=== PATIENT | female | born 1990 | race Caucasian/White ===

== ENCOUNTER 2016-10-30 15:44 | Emergency (ER) | payer OTHER ==
[~2016-10-30] VITALS: Ht 160 cm; Wt 102.5 kg
[~2016-10-30 15:44] MED LIST: AMOXICILLIN AND1 TA2 PO; ATIVAN1 MG PO; BACTRIM DS1 TAB PO; BENADRYL ALLERG25 M1 PO; CELEXA40 MG PO; CLINDAMYCIN HC300 MG PO; CLONIDINE HCL0.2 MG PO; GABAPENTIN300 M2 PO; IMITREX100 MG PO; KLO1 PO; LAC PO; LEVAQUIN750 MG PO; LIBRIUM10 MG PO; LOP600 PO; MEDROL DOSEPAK4 MG PO; MIRTAZAPINE15 M2 PO; MOTRIN800 MG PO; MYCLUD PO; NOR10T PO; REM15 PO; TRAMADOL HCL50 MG PO; VAL10 PO; VALIUM5 MG PO; XAN1 PO; ZOCOR10 MG PO; ZOFRAN ODT4 MG SL; ZOLOFT100 MG PO
[2016-10-30 17:37] LABS: BASOPHIL % 0.3 % (0-2); PLATELET COUNT 324 x10^3mcL (130-400); RED CELL DISTRIBUTION WIDTH 14.4 % (11.5-14.5)
[2016-10-30 17:49] LABS: CALCIUM 9.4 mg/dL (8.5-10.1); CARBON DIOXIDE 24.6 mmol/L (21-32); CHLORIDE SERUM 103 mmol/L (98-107); CREATININE SERUM 0.7 mg/dL (0.6-1.0); GFR1 > 60 mL/min; GLUCOSE SERUM 94 mg/dL (74-106); POTASSIUM SERUM 3.4 mmol/L (3.5-5.1); SODIUM SERUM 139 mmol/L (136-145)
[2016-10-30 17:53] LABS: ALKALINE PHOSPHATASE 75 U/L (46-116); ALT/SGPT 23 U/L (14-59); AST/SGOT 20 U/L (15-37); BILIRUBIN TOTAL 0.31 mg/dL (0.20-1.00); LIPASE 634 IU/L (73-393); TOTAL PROTEIN, SERUM 8.3 g/dL (6.4-8.2)
[2016-10-30 18:36] LABS: AMPHETAMINE QUAL UR NONE DETECTED (NEG <=1000)
[2016-10-30 19:07] VITALS: BP 108/78
== END 2016-10-30 19:07 | disposition home or self-care (01) ==
LOC: ED 15:44
PROVIDERS: Emergency Medicine
DX: R03.0 Elevated blood-pressure reading, without diagnosis of hypertension (principal); R55 Syncope and collapse; R74.8 Abnormal levels of other serum enzymes; R11.10 Vomiting, unspecified; F41.9 Anxiety disorder, unspecified; F32.1 Major depressive disorder, single episode, moderate; G43.909 Migraine, unspecified, not intractable, without status migrainosus; Z79.899 Other long term (current) drug therapy; E11.9 Type 2 diabetes mellitus without complications; Z88.6 Allergy status to analgesic agent
CPT/HCPCS: 36415; J8597; Q0162

== ENCOUNTER 2016-12-27 20:55 | Emergency (ER) | payer OTHER ==
[2016-12-27 22:28] VITALS: BP 129/94
== END 2016-12-27 22:28 | disposition home or self-care (01) ==
LOC: ED 20:55
DX: F41.0 Panic disorder [episodic paroxysmal anxiety] (principal); K21.9 Gastro-esophageal reflux disease without esophagitis; F32.9 Major depressive disorder, single episode, unspecified; G43.909 Migraine, unspecified, not intractable, without status migrainosus; Z88.8 Allergy status to other drugs, medicaments and biological substances

== ENCOUNTER 2017-01-20 10:16 | Emergency (ER) | payer OTHER ==
[~2017-01-20] VITALS: Ht 160 cm; Wt 93.4 kg
[2017-01-20 10:23] VITALS: BP 134/80
== END 2017-01-20 13:31 | disposition home or self-care (01) ==
LOC: ED 10:16
DX: N20.0 Calculus of kidney (principal); Z88.6 Allergy status to analgesic agent; F41.9 Anxiety disorder, unspecified; E11.9 Type 2 diabetes mellitus without complications
CPT/HCPCS: J0780; J1200; J1885

== ENCOUNTER 2017-01-25 04:36 | Emergency (ER) | payer OTHER ==
[2017-01-25 05:50] VITALS: BP 122/78
== END 2017-01-25 05:48 | disposition left against medical advice (07) ==
LOC: ED 04:36
DX: Z53.21 Procedure and treatment not carried out due to patient leaving prior to being seen by health care provider (principal)

== ENCOUNTER 2017-02-02 03:10 | Emergency (ER) | payer OTHER ==
[~2017-02-02] VITALS: Ht 160 cm; Wt 94.6 kg
[2017-02-02 06:24] VITALS: BP 119/69
== END 2017-02-02 06:24 | disposition home or self-care (01) ==
LOC: ED 03:10
DX: G43.909 Migraine, unspecified, not intractable, without status migrainosus (principal); Z88.1 Allergy status to other antibiotic agents
CPT/HCPCS: J1170; J2405; J7030

== ENCOUNTER 2017-05-05 03:22 | Emergency (ER) | payer OTHER ==
[2017-05-05 03:30] VITALS: BP 121/89
== END 2017-05-05 03:48 | disposition left against medical advice (07) ==
LOC: ED 03:22
DX: R51 Headache (principal); R42 Dizziness and giddiness; R11.10 Vomiting, unspecified; F32.9 Major depressive disorder, single episode, unspecified; F41.9 Anxiety disorder, unspecified
CPT/HCPCS: J1100; J2270; J2765

== ENCOUNTER 2017-05-05 04:03 | Emergency (ER) | payer OTHER ==
[2017-05-05 04:57] VITALS: BP 121/65
== END 2017-05-05 05:37 | disposition home or self-care (01) ==
LOC: ED 04:03
DX: G43.909 Migraine, unspecified, not intractable, without status migrainosus (principal); F41.9 Anxiety disorder, unspecified; F32.9 Major depressive disorder, single episode, unspecified

== ENCOUNTER 2017-07-17 02:34 | Emergency (ER) | payer OTHER ==
[~2017-07-17] VITALS: Ht 160 cm; Wt 88.5 kg
[2017-07-17 02:44] VITALS: Ht 160 cm; Wt 88.5 kg
[2017-07-17 05:30] VITALS: BP 114/75
== END 2017-07-17 05:30 | disposition home or self-care (01) ==
LOC: ED 02:34
DX: G43.909 Migraine, unspecified, not intractable, without status migrainosus (principal)
CPT/HCPCS: J0780; J1200; J2270; J7030

== ENCOUNTER 2017-09-18 18:53 | Emergency (ER) | payer OTHER ==
[~2017-09-18] VITALS: Ht 160 cm; Wt 89.3 kg
[2017-09-18 19:14] VITALS: Ht 160 cm; Wt 89.3 kg
[2017-09-18 20:49] LABS: CALCIUM 9.3 mg/dL (8.5-10.1); CARBON DIOXIDE 31.5 mmol/L (21-32); CHLORIDE SERUM 102 mmol/L (98-107); CREATININE SERUM 0.9 mg/dL (0.6-1.0); GFR1 > 60 mL/min; GLUCOSE SERUM 107 mg/dL (74-106); POTASSIUM SERUM 3.8 mmol/L (3.5-5.1); SODIUM SERUM 138 mmol/L (136-145)
[2017-09-18 20:50] LABS: BASOPHIL % 0.6 % (0-2); PLATELET COUNT 295 x10^3mcL (130-400); RED CELL DISTRIBUTION WIDTH 13.7 % (11.5-14.5)
[2017-09-18 20:53] LABS: ALBUMIN 4.1 g/dL (3.4-5.0); ALKALINE PHOSPHATASE 70 U/L (46-116); ALT/SGPT 22 U/L (14-59); AST/SGOT 21 U/L (15-37); BILIRUBIN TOTAL 0.3 mg/dL (0.20-1.00); LIPASE 93 IU/L (73-393); TOTAL PROTEIN, SERUM 8.1 g/dL (6.4-8.2)
[2017-09-18 21:33] LABS: UA SPECIFIC GRAVITY <=1.005 (1.005-1.035); microscopic required? YES; urine erythrocyte 1+ (NEGATIVE)
[2017-09-18 22:00] VITALS: BP 136/92
== END 2017-09-18 22:09 | disposition home or self-care (01) ==
LOC: ED 18:53
PROVIDERS: Emergency Medicine
DX: R11.10 Vomiting, unspecified (principal); R10.11 Right upper quadrant pain; R19.7 Diarrhea, unspecified
CPT/HCPCS: J2405; J7030; Q0092

== ENCOUNTER 2018-02-17 16:13 | Emergency (ER) | payer OTHER ==
[~2018-02-17] VITALS: Ht 160 cm; Wt 86.2 kg
[2018-02-17 16:18] VITALS: BP 132/98; Ht 160 cm; Wt 86.2 kg
== END 2018-02-17 17:19 | disposition home or self-care (01) ==
LOC: ED 16:13
DX: L29.9 Pruritus, unspecified (principal)
CPT/HCPCS: J1200

== ENCOUNTER 2018-02-24 04:44 | Emergency (ER) | payer OTHER ==
[~2018-02-24] VITALS: Ht 157.5 cm; Wt 86.2 kg
[2018-02-24 07:00] LABS: BASOPHIL % 0.4 % (0-2); PLATELET COUNT 302 x10^3mcL (130-400); RED CELL DISTRIBUTION WIDTH 14.3 % (11.5-14.5)
[2018-02-24 07:17] LABS: CALCIUM 8.9 mg/dL (8.5-10.1); CARBON DIOXIDE 25.2 mmol/L (21-32); CHLORIDE SERUM 108 mmol/L (98-107); CREATININE SERUM 0.9 mg/dL (0.6-1.0); GFR1 > 60 mL/min; GLUCOSE SERUM 109 mg/dL (74-106); POTASSIUM SERUM 4.5 mmol/L (3.5-5.1); SODIUM SERUM 146 mmol/L (136-145)
[2018-02-24 07:21] LABS: ALBUMIN 3.6 g/dL (3.4-5.0); ALKALINE PHOSPHATASE 65 U/L (46-116); ALT/SGPT 18 U/L (14-59); AST/SGOT 13 U/L (15-37); BILIRUBIN TOTAL 0.22 mg/dL (0.20-1.00); CHOLESTEROL 195 mg/dL (<200); CHOLESTEROL/HDL RATIO 3.5; HDL CHOLESTEROL 55 mg/dL (40-60); LIPASE 100 IU/L (73-393); TOTAL PROTEIN, SERUM 7.9 g/dL (6.4-8.2); TRIGLYCERIDES 120 mg/dL (<150)
[2018-02-24 07:29] LABS: T3 TOTAL 1.18 ng/mL
[2018-02-24 07:31] VITALS: BP 114/74
[2018-02-24 07:35] LABS: FREE T4 0.84 ng/dL (0.76-1.46); FREE THYROXINE INDEX 2.1 ug/dL (1.4-4.5); T4(THYROXINE) 6.5 ug/dL (4.7-13.3)
== END 2018-02-24 08:32 | disposition home or self-care (01) ==
LOC: ED 04:44
PROVIDERS: Specialist
DX: R55 Syncope and collapse (principal); I49.9 Cardiac arrhythmia, unspecified; F41.9 Anxiety disorder, unspecified; G43.909 Migraine, unspecified, not intractable, without status migrainosus; E87.0 Hyperosmolality and hypernatremia; R11.2 Nausea with vomiting, unspecified
CPT/HCPCS: 83880; 84439; J1885; J2405; J7030; Q0092

== ENCOUNTER 2018-04-10 12:44 | Emergency (ER) | payer OTHER | END 2018-04-10 13:28 | disposition left against medical advice (07) | LOC: ED 12:44 | DX: Z53.21 Procedure and treatment not carried out due to patient leaving prior to being seen by health care provider (principal) ==

== ENCOUNTER 2018-07-11 14:29 | Emergency (ER) | payer OTHER ==
[~2018-07-11] VITALS: Ht 160 cm; Wt 89.4 kg
[2018-07-11 14:35] VITALS: Ht 160 cm; Wt 89.4 kg
[2018-07-11 15:13] LABS: BASOPHIL % 0.5 % (0-2); PLATELET COUNT 324 x10^3mcL (130-400); RED CELL DISTRIBUTION WIDTH 13.8 % (11.5-14.5)
[2018-07-11 15:23] LABS: CHLORIDE SERUM 103 mmol/L (98-107); CREATININE SERUM 0.7 mg/dL (0.6-1.0); GFR1 > 60 mL/min; GLUCOSE SERUM 123 mg/dL (74-106); POTASSIUM SERUM 3.8 mmol/L (3.5-5.1); SODIUM SERUM 137 mmol/L (136-145)
[2018-07-11 15:27] LABS: ALBUMIN 4.1 g/dL (3.4-5.0); ALKALINE PHOSPHATASE 67 U/L (46-116); ALT/SGPT 10 U/L (14-59); AST/SGOT 21 U/L (15-37); BILIRUBIN TOTAL 0.23 mg/dL (0.20-1.00); LIPASE 200 IU/L (73-393)
[2018-07-11 15:31] LABS: TOTAL PROTEIN, SERUM 8.3 g/dL (6.4-8.2)
[2018-07-11 16:12] LABS: UA SPECIFIC GRAVITY >=1.030 (1.005-1.035); microscopic required? YES; urine erythrocyte 1+ (NEGATIVE)
[2018-07-11 17:48] VITALS: BP 122/90
== END 2018-07-11 17:48 | disposition home or self-care (01) ==
LOC: ED 14:29
PROVIDERS: Emergency Medicine
DX: N12 Tubulo-interstitial nephritis, not specified as acute or chronic (principal); N20.1 Calculus of ureter; F41.9 Anxiety disorder, unspecified; F32.9 Major depressive disorder, single episode, unspecified; G43.909 Migraine, unspecified, not intractable, without status migrainosus; I49.9 Cardiac arrhythmia, unspecified; Z98.890 Other specified postprocedural states
CPT/HCPCS: J0696; J1885; J2270; J2405; J7030

== ENCOUNTER 2018-07-15 02:33 | Emergency (ER) | payer OTHER ==
[~2018-07-15] VITALS: Ht 157.5 cm; Wt 78.5 kg
[2018-07-15 02:50] VITALS: Ht 157.5 cm; Wt 78.5 kg
[2018-07-15 05:57] VITALS: BP 142/86
== END 2018-07-15 05:57 | disposition home or self-care (01) ==
LOC: ED 02:33
DX: R10.9 Unspecified abdominal pain (principal); F41.9 Anxiety disorder, unspecified; R11.0 Nausea; R42 Dizziness and giddiness; F32.9 Major depressive disorder, single episode, unspecified; G43.909 Migraine, unspecified, not intractable, without status migrainosus; Z98.890 Other specified postprocedural states
CPT/HCPCS: J2405; J3490; J7030

== ENCOUNTER 2018-08-25 18:55 | Emergency (ER) | payer OTHER ==
[~2018-08-25] VITALS: Ht 157.5 cm; Wt 86.2 kg
[2018-08-25 19:05] VITALS: Ht 157.5 cm; Wt 86.2 kg
[2018-08-25 19:28] LABS: BASOPHIL % 0.4 % (0-2); PLATELET COUNT 320 x10^3mcL (130-400); RED CELL DISTRIBUTION WIDTH 13.6 % (11.5-14.5)
[2018-08-25 19:38] LABS: CALCIUM 9.4 mg/dL (8.5-10.1); CARBON DIOXIDE 31.7 mmol/L (21-32); CHLORIDE SERUM 104 mmol/L (98-107); CREATININE SERUM 0.9 mg/dL (0.6-1.0); GFR1 > 60 mL/min; GLUCOSE SERUM 99 mg/dL (74-106); POTASSIUM SERUM 3.8 mmol/L (3.5-5.1); SODIUM SERUM 142 mmol/L (136-145)
[2018-08-25 19:42] LABS: ALBUMIN 3.9 g/dL (3.4-5.0); ALKALINE PHOSPHATASE 79 U/L (46-116); ALT/SGPT 20 U/L (14-59); AST/SGOT 16 U/L (15-37); BILIRUBIN TOTAL 0.23 mg/dL (0.20-1.00); LIPASE 238 IU/L (73-393); TOTAL PROTEIN, SERUM 8.3 g/dL (6.4-8.2)
[2018-08-25 20:35] LABS: microscopic required? YES; urine erythrocyte 1+ (NEGATIVE)
[2018-08-25 21:11] VITALS: BP 130/84
== END 2018-08-25 21:11 | disposition home or self-care (01) ==
LOC: ED 18:55
PROVIDERS: Emergency Medicine
DX: N39.0 Urinary tract infection, site not specified (principal); F41.9 Anxiety disorder, unspecified; F32.9 Major depressive disorder, single episode, unspecified; G43.909 Migraine, unspecified, not intractable, without status migrainosus; Z87.442 Personal history of urinary calculi; Z98.890 Other specified postprocedural states
CPT/HCPCS: J1885; J2405; J7030

== ENCOUNTER 2018-09-19 08:22 | Emergency (ER) | payer OTHER ==
[~2018-09-19] VITALS: Ht 160 cm; Wt 83.9 kg
[2018-09-19 08:25] VITALS: Ht 160 cm; Wt 83.9 kg
[2018-09-19 09:57] VITALS: BP 129/91
== END 2018-09-19 10:06 | disposition home or self-care (01) ==
LOC: ED 08:22
DX: G43.909 Migraine, unspecified, not intractable, without status migrainosus (principal); Z88.1 Allergy status to other antibiotic agents; I49.9 Cardiac arrhythmia, unspecified; F41.9 Anxiety disorder, unspecified; F32.9 Major depressive disorder, single episode, unspecified; Z98.890 Other specified postprocedural states; Z87.442 Personal history of urinary calculi
CPT/HCPCS: J0780; J1200; J1885; J3030; J7030

== ENCOUNTER 2018-09-22 03:49 | Emergency (ER) | payer OTHER ==
[~2018-09-22] VITALS: Ht 160 cm; Wt 83.5 kg
[2018-09-22 03:56] VITALS: Ht 160 cm; Wt 83.5 kg
[2018-09-22 05:13] VITALS: BP 121/81
== END 2018-09-22 05:14 | disposition left against medical advice (07) ==
LOC: ED 03:49
DX: G43.909 Migraine, unspecified, not intractable, without status migrainosus (principal); Z53.21 Procedure and treatment not carried out due to patient leaving prior to being seen by health care provider

== ENCOUNTER 2018-10-01 15:01 | Emergency (ER) | payer OTHER ==
[~2018-10-01] VITALS: Ht 160 cm; Wt 83.9 kg
[2018-10-01 15:28] VITALS: Ht 160 cm; Wt 83.9 kg
[2018-10-01 16:32] LABS: microscopic required? YES; urine erythrocyte TRACE (NEGATIVE)
[2018-10-01 16:39] LABS: BASOPHIL % 0.4 % (0-2); PLATELET COUNT 263 x10^3mcL (130-400); RED CELL DISTRIBUTION WIDTH 13.6 % (11.5-14.5)
[2018-10-01 17:00] LABS: CALCIUM 9.7 mg/dL (8.5-10.1); CARBON DIOXIDE 27.7 mmol/L (21-32); CHLORIDE SERUM 102 mmol/L (98-107); CREATININE SERUM 0.7 mg/dL (0.6-1.0); GFR1 > 60 mL/min; GLUCOSE SERUM 94 mg/dL (74-106); POTASSIUM SERUM 4.1 mmol/L (3.5-5.1); SODIUM SERUM 138 mmol/L (136-145)
[2018-10-01 17:52] VITALS: BP 127/84
== END 2018-10-01 17:52 | disposition home or self-care (01) ==
LOC: ED 15:01
PROVIDERS: Emergency Medicine
DX: M54.9 Dorsalgia, unspecified (principal); R19.7 Diarrhea, unspecified; F41.9 Anxiety disorder, unspecified; F32.9 Major depressive disorder, single episode, unspecified; G43.909 Migraine, unspecified, not intractable, without status migrainosus; Z98.890 Other specified postprocedural states; Z87.442 Personal history of urinary calculi; Z88.1 Allergy status to other antibiotic agents
CPT/HCPCS: 36415; J1885; Q0092

== ENCOUNTER 2018-11-03 19:56 | Emergency (ER) | payer OTHER ==
[~2018-11-03] VITALS: Ht 160 cm; Wt 82.6 kg
[2018-11-03 20:04] VITALS: Ht 160 cm; Wt 82.6 kg
[2018-11-03 21:14] LABS: BASOPHIL % 0.5 % (0-2); PLATELET COUNT 301 x10^3mcL (130-400); RED CELL DISTRIBUTION WIDTH 14.1 % (11.5-14.5)
[2018-11-03 21:16] LABS: microscopic required? YES; urine erythrocyte 1+ (NEGATIVE)
[2018-11-03 21:24] LABS: CALCIUM 9.5 mg/dL (8.5-10.1); CARBON DIOXIDE 24.9 mmol/L (21-32); CHLORIDE SERUM 102 mmol/L (98-107); CREATININE SERUM 0.7 mg/dL (0.6-1.0); GFR1 > 60 mL/min; GLUCOSE SERUM 98 mg/dL (74-106); POTASSIUM SERUM 4.3 mmol/L (3.5-5.1); SODIUM SERUM 136 mmol/L (136-145)
[2018-11-03 21:25] LABS: AMPHETAMINE QUAL UR NONE DETECTED (See below)
[2018-11-03 21:38] LABS: ALBUMIN 4.1 g/dL (3.4-5.0); ALKALINE PHOSPHATASE 70 U/L (46-116); ALT/SGPT 25 U/L (14-59); AST/SGOT 19 U/L (15-37); BILIRUBIN TOTAL 0.4 mg/dL (0.20-1.00); FREE T4 0.97 ng/dL (0.76-1.46); LIPASE 59 IU/L (73-393); TOTAL PROTEIN, SERUM 8.6 g/dL (6.4-8.2)
[2018-11-03 23:45] VITALS: BP 131/94
== END 2018-11-03 23:45 | disposition home or self-care (01) ==
LOC: ED 19:56
PROVIDERS: Emergency Medicine
DX: R51 Headache (principal); R11.10 Vomiting, unspecified; R19.7 Diarrhea, unspecified; F41.9 Anxiety disorder, unspecified; F32.9 Major depressive disorder, single episode, unspecified; Z87.442 Personal history of urinary calculi; Z98.890 Other specified postprocedural states; Z88.1 Allergy status to other antibiotic agents
CPT/HCPCS: 36415; 84439; G0480; J1100; J2270; J2765; J7030

== ENCOUNTER 2018-11-19 07:44 | Emergency (ER) | payer OTHER ==
[~2018-11-19] VITALS: Ht 162.6 cm; Wt 82.6 kg
[2018-11-19 07:48] VITALS: BP 145/96; Ht 162.6 cm; Wt 82.6 kg
== END 2018-11-19 08:54 | disposition left against medical advice (07) ==
LOC: ED 07:44
DX: M54.5 Low back pain (principal); R30.0 Dysuria; G43.909 Migraine, unspecified, not intractable, without status migrainosus; Z88.1 Allergy status to other antibiotic agents; Z98.890 Other specified postprocedural states; Z87.442 Personal history of urinary calculi
CPT/HCPCS: J1885

== ENCOUNTER 2019-03-01 15:42 | Emergency (ER) | payer OTHER ==
[~2019-03-01] VITALS: Ht 157.5 cm; Wt 87.5 kg
[2019-03-01 15:46] VITALS: Ht 157.5 cm; Wt 87.5 kg
[2019-03-01 17:00] LABS: BASOPHIL % 0.4 % (0-2); PLATELET COUNT 290 x10^3mcL (130-400); RED CELL DISTRIBUTION WIDTH 13.4 % (11.5-14.5)
[2019-03-01 17:04] LABS: UA SPECIFIC GRAVITY <=1.005 (1.005-1.035); microscopic required? YES; urine erythrocyte 1+ (NEGATIVE)
[2019-03-01 17:07] LABS: CALCIUM 9.3 mg/dL (8.5-10.1); CARBON DIOXIDE 28.9 mmol/L (21-32); CHLORIDE SERUM 101 mmol/L (98-107); CREATININE SERUM 0.7 mg/dL (0.6-1.0); GFR1 > 60 mL/min; GLUCOSE SERUM 93 mg/dL (74-106); POTASSIUM SERUM 3.7 mmol/L (3.5-5.1); SODIUM SERUM 140 mmol/L (136-145)
[2019-03-01 17:20] LABS: ALBUMIN 4.3 g/dL (3.4-5.0); ALKALINE PHOSPHATASE 74 U/L (46-116); ALT/SGPT 20 U/L (14-59); AST/SGOT 18 U/L (15-37); BILIRUBIN TOTAL 0.37 mg/dL (0.20-1.00); LIPASE 61 IU/L (73-393); T4(THYROXINE) 7.7 ug/dL (4.7-13.3)
[2019-03-01 17:22] LABS: TOTAL PROTEIN, SERUM 8.8 g/dL (6.4-8.2)
[2019-03-01 18:42] LABS: AMPHETAMINE QUAL UR NONE DETECTED (See below)
[2019-03-01 18:51] VITALS: BP 108/78
== END 2019-03-01 20:25 | disposition home or self-care (01) ==
LOC: ED 15:42
PROVIDERS: Emergency Medicine
DX: G89.29 Other chronic pain (principal); M54.6 Pain in thoracic spine; F41.9 Anxiety disorder, unspecified; F12.10 Cannabis abuse, uncomplicated; E66.9 Obesity, unspecified; F32.9 Major depressive disorder, single episode, unspecified; G43.909 Migraine, unspecified, not intractable, without status migrainosus; Z68.35 Body mass index [BMI] 35.0-35.9, adult; Z88.1 Allergy status to other antibiotic agents; Z98.890 Other specified postprocedural states; Z87.442 Personal history of urinary calculi
CPT/HCPCS: J1100; J1885; J2405; J7030; Q0092

== ENCOUNTER 2019-06-06 22:26 | Emergency (ER) | payer OTHER ==
[~2019-06-06] VITALS: Ht 160 cm; Wt 91.6 kg
[2019-06-06 22:34] VITALS: BP 121/84; Ht 160 cm; Wt 91.6 kg
== END 2019-06-06 23:55 | disposition home or self-care (01) ==
LOC: ED 22:26
DX: G43.909 Migraine, unspecified, not intractable, without status migrainosus (principal); Z88.1 Allergy status to other antibiotic agents
CPT/HCPCS: J0780; J1100; J1200; J7030; J8540

== ENCOUNTER 2019-10-04 11:33 | Emergency (ER) | payer OTHER ==
[~2019-10-04] VITALS: Ht 160 cm; Wt 96.2 kg
[2019-10-04 11:37] VITALS: BP 124/79; Ht 160 cm; Wt 96.2 kg
== END 2019-10-04 12:14 | disposition home or self-care (01) ==
LOC: ED 11:33
DX: K64.8 Other hemorrhoids (principal); G43.909 Migraine, unspecified, not intractable, without status migrainosus; Z87.442 Personal history of urinary calculi; Z88.1 Allergy status to other antibiotic agents
CPT/HCPCS: J2405; J3010

== ENCOUNTER 2020-08-08 00:09 | Emergency (ER) | payer OTHER ==
[~2020-08-08] VITALS: Ht 160 cm; Wt 109.3 kg
[2020-08-08 00:16] VITALS: BP 135/99; Ht 160 cm; Wt 109.3 kg
[2020-08-08 02:13] LABS: microscopic required? YES; urine erythrocyte 1+ (NEGATIVE)
[2020-08-08 02:17] LABS: BASOPHIL % 0.3 % (0.2-1.3); PLATELET COUNT 336 x10^3mcL (179-408); RED CELL DISTRIBUTION WIDTH 14.1 % (12.3-17.7)
[2020-08-08 02:18] LABS: CALCIUM 8.7 mg/dL (8.5-10.1); CARBON DIOXIDE 26.7 mmol/L (21-32); CHLORIDE SERUM 104 mmol/L (98-107); CREATININE SERUM 0.9 mg/dL (0.6-1.0); GFR1 > 60 mL/min; GLUCOSE SERUM 103 mg/dL (74-106); SODIUM SERUM 140 mmol/L (136-145)
[2020-08-08 02:23] LABS: ALBUMIN 3.6 g/dL (3.4-5.0); ALKALINE PHOSPHATASE 127 U/L (46-116); ALT/SGPT 55 U/L (14-59); AST/SGOT 69 U/L (15-37); BILIRUBIN TOTAL 0.25 mg/dL (0.20-1.00); TOTAL PROTEIN, SERUM 8.2 g/dL (6.4-8.2)
[2020-08-08] MEDS ORDERED: CYCLOBENZAPRINE5 MG PO (03:59)
[2020-08-08] MEDS ORDERED: MOT600 PO (03:59)
[2020-08-08] MEDS ORDERED: CLONAZEPAM2 MG PO (09:15)
== END 2020-08-08 04:13 | disposition home or self-care (01) ==
LOC: ED 00:09
PROVIDERS: Emergency Medicine
DX: R10.9 Unspecified abdominal pain (principal); G43.909 Migraine, unspecified, not intractable, without status migrainosus; E66.9 Obesity, unspecified; Z98.890 Other specified postprocedural states; Z87.442 Personal history of urinary calculi; Z88.1 Allergy status to other antibiotic agents
CPT/HCPCS: J1885; J2270

== ENCOUNTER 2020-08-08 08:34 | Emergency (ER) | payer OTHER ==
[~2020-08-08] VITALS: Ht 160 cm; Wt 109.8 kg
[~2020-08-08 08:34] MED LIST changes: +CYCLOBENZAPRINE5 MG PO; +MOT600 PO
[2020-08-08 08:49] VITALS: BP 136/97; Ht 160 cm; Wt 109.8 kg
[2020-08-08] MEDS ORDERED: CLONAZEPAM2 MG PO (09:15)
== END 2020-08-08 09:34 | disposition home or self-care (01) ==
LOC: ED 08:34
DX: F41.9 Anxiety disorder, unspecified (principal); G43.909 Migraine, unspecified, not intractable, without status migrainosus; Z98.890 Other specified postprocedural states; Z88.1 Allergy status to other antibiotic agents; Z87.442 Personal history of urinary calculi; Z76.0 Encounter for issue of repeat prescription

== ENCOUNTER 2020-08-14 00:19 | Emergency (ER) | payer OTHER ==
[~2020-08-14] VITALS: Ht 160 cm; Wt 108.9 kg
[~2020-08-14 00:19] MED LIST changes: +CLONAZEPAM2 MG PO
[2020-08-14 00:26] VITALS: Ht 160 cm; Wt 108.9 kg
[2020-08-14 00:42] VITALS: BP 148/88
[2020-08-14] MEDS ORDERED: KLONOPIN1 MG PO (00:56)
== END 2020-08-14 01:03 | disposition home or self-care (01) ==
LOC: ED 00:19
DX: F41.9 Anxiety disorder, unspecified (principal); F13.20 Sedative, hypnotic or anxiolytic dependence, uncomplicated; G43.909 Migraine, unspecified, not intractable, without status migrainosus; Z98.890 Other specified postprocedural states; Z87.442 Personal history of urinary calculi; Z88.1 Allergy status to other antibiotic agents